=== PATIENT | female | born 1945 | race Caucasian/White ===

== ENCOUNTER 2017-04-20 09:16 | Outpatient (CLI) | payer MEDICARE ==
--- NOTE | 2017-04-20 11:17 | CT ---
CHEST AND ABDOMEN AND PELVIC CT WITH CONTRAST: HISTORY: Abnormal colonoscopy. Hypertension. Hepatic lesion and bone lesions. Liver disease. COMPARISON: None. TECHNIQUE: Chest, abdomen, and pelvic CT is performed with IV and oral contrast. Coronal reformatted images are submitted for interpretation. FINDINGS: CHEST CT: There is an incompletely evaluated soft tissue mass at the distal left clavicle, near the coracoid pr ocess. There is an enlarged left neck lymph node just inferior to the left thyroid lobe measuring 2. 1 x 2.9 cm. Enlarged left paraclavicular lymph node measuring 2.1 x 1.3 cm. Enlarged right axillary lymph node measuring 2.6 x 2.4 cm. Enlarged left axillary lymph node measuring 1.4 x 1.8 cm. The mediastinal mass, lymphadenopathy, or hematoma. A prosthetic heart valve is identified. There is a pleural-based mass with associated pathologic fracture involving the lateral right 3rd rib . The pleural-based component measures 4.2 x 1.3 cm. There is also a pathologic fracture involving the posterior right 7th rib with a pleural-based component of 1.2 x 5[address]: Extensive metastatic lesions in the liver and spleen. Pancreas and adrenal gland are unremarkable. Symmetric enhancement of the kidneys. No obstructive uropathy. There are enlarged peripancreatic ly mph nodes, periaortic and aortocaval lymph nodes. Periaortic lymph node measures 2.1 x 2.2 cm. Aort ic lymph node measures 1.4 x 1.8 cm. Gallbladder is unremarkable. Portal vein is patent. No mesenteric free air or free fluid. No evidence of bowel obstruction. Gastric mucosa and small bowel loops are unremarkable. Ileocecal junction is normal. Appendix is normal. There is scattered fecal material in a nondistended, nondil ated colon. There is evidence of minimal diverticulosis, without evidence of diverticulitis. PELVIC CT: Calcification and hypodensity in the left adnexa. Uterus is unremarkable. Urinary bladder is unrema rkable. Pathologic fracture with paraspinal malignancy at T7, T9, and T10. Additional focus of metastases in the right lesser trochanter and right inferior pubic ramus is suspected. Additional osseous abnorma lity in the distal left clavicle. IMPRESSION: Extensive osseous, lymph node malignancy along with malignancy involving the solid organs of the abdo men as described above. The exact etiology is uncertain. The liver lesions are amenable to percutan eous biopsy. Results of the study discussed with Dr. Tapia 04/20/17 at 10:34 a.m. CODE CR POS: TWAN
[2017-04-20] MEDS ORDERED: Iopamidol 370 76% 100 ML VIAL ONE (14:25)
== END 2017-04-20 09:17 | disposition home or self-care (01) ==
LOC: CT 09:16
PROVIDERS: ATTEND Family Medicine
DX: K76.9 Liver disease, unspecified (principal); M89.9 Disorder of bone, unspecified; C41.9 Malignant neoplasm of bone and articular cartilage, unspecified; R59.0 Localized enlarged lymph nodes
CPT/HCPCS: 71260; 74177; 82565

== ENCOUNTER → 2017-05-01 | Day surgery (SDC) | payer MEDICARE ==
[2017-04-30 12:10] VITALS: BMI 35.4
[~2017-05-01] MED LIST: FLU VACC TS2017-18 (>65YR) 0.5 ML SYRINGE IM ONE; Fentanyl 100 MCG/2 ML VIAL ONE; Midazolam HCl 2 mg/2 ml Vial ONE; Prevnar 13-Val Conj/PF 0.5 ML SYRINGE IM ONE; Sodium Bicarbonate 2.5 MEQ/5 ML VIAL ONE; Sodium Chloride 0.9% 20 ML ONE
[2017-05-01 10:05] LABS: INR-International Normal Ratio 1.1; PTT 32.4 SEC (22.9-36.1); Prothrombin Time 14.2 SEC (12.0-14.7)
[2017-05-01 10:14] LABS: Band 1 % (5-11); Eosinophils 1 % (0-10); Hemoglobin 10.8 g/dL (12.0-16.0); Lymphocytes 9 % (21-51); MDiff Complete? YES; Mean Corpuscular HGB CONC 32.4 g/dL (32.0-36.0); Mean Corpuscular Hemoglobin 30.4 pg (27.0-31.0); Mean Corpuscular Volume 93.7 fl (81.0-99.0); Mean Platelet Volume 7.3 fL (7.4-10.4); Monocytes 10 % (0-10); Neutrophil 78 % (42-75); Platelet Count 210 thou/uL (130-400); Polychromasia SLIGHT = 2-3 cells (100X) (0-2/hpf); RBC Distribution Width 18.2 % (11.5-14.5); Reactive Lymphocytes 1 % (0-10); Red Blood Cell (RBC) Count 3.56 mill/uL (4.20-5.40); White Blood Cell (WBC) Count 9.6 thou/uL (4.8-10.8)
--- NOTE | 2017-05-01 13:34 | CT ---
CT GUIDED RIGHT AXILLARY LYMPH NODE BIOPSY: COMPARISON: CT 04/20/17. TECHNIQUE/FINDINGS: The patient was brought to the CT suite. All questions were answered. Informed consent was obtained . Timeout was performed. The patient's right axilla was prepped and draped in normal sterile fashion. Four mL of Lidocaine wa s instilled into the superficial and deep soft tissues. Using CT guidance, a trocar was placed withi n the right axillary lymph node. Using an 18-gauge Biopince needle, a total of 4 cores were obtained . The pathology confirmed adequate location. The patient tolerated the procedure well without compl ication. IMPRESSION: Technically successful CT-guided right axillary lymph node biopsy. Pathology is pending. POS: TWAN
== END ==
LOC: CT 08:54
PROVIDERS: ATTEND Family Medicine
PROC: 07D53ZX Extraction of Right Axillary Lymphatic, Percutaneous Approach, Diagnostic (ICD-10-PCS; principal; 2017-05-01)
DX: C85.14 Unspecified B-cell lymphoma, lymph nodes of axilla and upper limb (principal); K76.9 Liver disease, unspecified; R53.81 Other malaise; I11.0 Hypertensive heart disease with heart failure; I50.32 Chronic diastolic (congestive) heart failure; D64.9 Anemia, unspecified; I48.91 Unspecified atrial fibrillation; E78.5 Hyperlipidemia, unspecified; K57.30 Diverticulosis of large intestine without perforation or abscess without bleeding; J30.9 Allergic rhinitis, unspecified; M17.11 Unilateral primary osteoarthritis, right knee; M89.9 Disorder of bone, unspecified; K31.7 Polyp of stomach and duodenum; B02.9 Zoster without complications; Z88.0 Allergy status to penicillin; Z79.01 Long term (current) use of anticoagulants; Z79.899 Other long term (current) drug therapy; Z95.2 Presence of prosthetic heart valve; Z98.890 Other specified postprocedural states; Z85.828 Personal history of other malignant neoplasm of skin
CPT/HCPCS: 71250; 71260; 77002; 85025; 85610; 85730; 88184; 88305; 88333; 88341; 88342; 88360; A4216; J2250; J3010

== ENCOUNTER 2017-05-09 19:45 | Inpatient (IN) | payer MEDICARE ==
[2017-05-09 20:31] LABS: Hemoglobin 13.8 g/dL (12.0-16.0); Mean Corpuscular HGB CONC 32.4 g/dL (32.0-36.0); Mean Corpuscular Hemoglobin 30.9 pg (27.0-31.0); Mean Corpuscular Volume 95.5 fl (81.0-99.0); Mean Platelet Volume 7.3 fL (7.4-10.4); Platelet Count 319 thou/uL (130-400); RBC Distribution Width 19.1 % (11.5-14.5); Red Blood Cell (RBC) Count 4.45 mill/uL (4.20-5.40); White Blood Cell (WBC) Count 16.5 thou/uL (4.8-10.8)
[2017-05-09 20:45] LABS: #Eosinphils 0.1 thou/uL (0.0-0.7); #Lymphocytes 1.7 thou/uL (1.20-3.40); #Neutrophils 13.7 thou/uL (1.40-6.50); %Basophils 0.1 % (0.0-1.0); %Eosinophils 0.7 % (0.0-10.0); %Lymphocytes 10.2 % (21.0-51.0); %Monocytes 6.1 % (0.0-10.0); %Neutrophils 82.9 % (42.0-75.0)
[2017-05-09 20:46] LABS: CKMB 2.2 ng/mL (0-6.6); Troponin I Less than 0.010 ng/mL (< 0.028)
[2017-05-09 20:48] LABS: ALT (SGPT) 151 U/L (8-55); AST (SGOT) 543 U/L (5-34); Albumin 2.3 g/dL (3.4-4.8); Alkaline Phosphatase 1079 U/L (40-150); Anion Gap 32 mmol/L (10-20); BUN (Urea Nitrogen) 43 mg/dL (9.8-20.1); Bilirubin, Total 5.8 mg/dL (0.2-1.2); Calc. Creatinine Clearance 0 mL/min (70-130); Carbon Dioxide 14 mmol/L (23-31); Chloride 83 mmol/L (98-107); Estimated GFR-MDRD 40; Globulin 3.2 g/dL (2.4-3.5); Glucose 64 mg/dL (83-110); Potassium 6.4 mmol/L (3.5-5.1); Protein, Total 5.5 g/dL (6.0-8.3); Sodium 123 mmol/L (136-145)
--- NOTE | 2017-05-09 21:09 | RAD ---
RADIOGRAPH CHEST 1 VIEW: 05/09/17 HISTORY: 71-year-old female with dyspnea. FINDINGS: The thoracic aorta is tortuous and ectatic. There is no evidence of air space density, pneumothorax, or pulmonary edema. The lateral costophrenic angles are sharp. IMPRESSION: 1) No acute pulmonary findings. 2) Ectasia of thoracic aorta. 3) Metastatic right rib/pleural mass. 4) Metastatic left clavicular lesion with pathologic fracture. aleena [] POS: TWAN
[2017-05-09] MEDS ORDERED: Albuterol Sulfate 2.5 mg/3 ml Neb ONE ×2 (21:15)
[2017-05-09] MEDS ORDERED: Calcium Gluc 4.6 MEQ/10 ML (100 MG/ML) ONE (21:17)
[2017-05-09] MEDS ORDERED: Norepinephrine 8 MG/0.9% NS 250 ML ONE (21:40)
[2017-05-09] MEDS ORDERED: fentaNYL Citrate/PF 2,000 MCG in Sodium Chloride 0.9% 60 ML IV SCH (21:56)
[2017-05-09 22:09] LABS: Actual Bicarbonate (HCO3a) 19.5 mEq/L (22-26); Base Excess (BEa) 7.6 mEq/L (0 (+/-) 2.5); Hematocrit-ABG 41.7 % (36.0-47.0); Hemoglobin (Hb) 10.8 g/dL (12.0-16.0); O2 Tension (PaO2) 95.3 mmHg (80.0-100.0); pH, Arterial 7.25 (7.35-7.45)
[2017-05-09 22:10] LABS: Analyzer IN Cardio ER; Calcium, Ionized 1.2 mmol/L (1.12-1.30); Puncture Site RRA
[2017-05-09 22:39] LABS: Fibrinogen 334 mg/dL (253-463)
[2017-05-09 22:40] LABS: PTT 55.7 SEC (22.9-36.1)
[2017-05-09 22:41] LABS: Prothrombin Time 91.1 SEC (12.0-14.7)
[2017-05-09 22:49] LABS: INR-International Normal Ratio 10.7; Platelet Count 282 thou/uL (130-400)
[2017-05-09 22:58] LABS: FSP-Qualitative ABNORMAL (Normal); FSP-Semiquantitative >=5 & <20 mcg/mL (Less than 5)
[2017-05-09 23:16] LABS: Bilirubin Moderate (Negative); Blood, Urine Moderate (Negative); Clarity TURBID (Clear); Glucose, Urine (Dipstick) Negative (Negative); Leukocyte Small (Negative); Nitrite Positive (Negative); Protein, Urine (Dipstick) Negative (Neg-Trace); Specific Gravity, Urine 1.022 (1.002-1.036)
[2017-05-09 23:21] LABS: Yeast-AUWi Flag 49.7 (0-25.0)
--- NOTE | 2017-05-09 23:23 | RAD ---
RADIOGRAPH CHEST 1 VIEW: Date: 05/09/17 Time: 10:08 p.m. HISTORY: 71-year-old female with dyspnea. Status post intubation. COMPARISON: 05/09/17, 8:13 p.m. FINDINGS: Endotracheal tube has been placed with distal tip overlying the mid thoracic trachea. There is a new central vascular catheter descending from the right neck with distal tip overlying the expected locat ion of the SVC. NG tube has been placed, with distal tip in the expected location of the proximal sto mach. There has been no other interval change. IMPRESSION: 1. Status post intubation, with endotracheal tube, nasogastric tube and right sided central vasc ular catheter. 2. Right lateral rib/pleural metastatic tumor mass. 3. Osseous metastatic lesion of left distal clavicle with pathologic fracture. 4. No acute pulmonary findings. KAMERON [] POS: TWAN
[2017-05-09 23:29] LABS: RBC/HPF 21-50 HPF (0-3)
[2017-05-09 23:30] LABS: Bacteria/HPF 2+ HPF (None Seen); Renal Epithelial 0-3 HPF (0-3); Transitional Epithelial 0-3 HPF (0-3)
[2017-05-10] MEDS ORDERED: Ventilator Sedation Protocol 1 EACH FS SCH (00:22)
[2017-05-10] MEDS ORDERED: CCU Electrolyte Replacement 1 EACH FS SCH (00:22)
[2017-05-10] MEDS ORDERED: Norepinephrine 8 MG/0.9% NS 250 ML IVPB SCH (00:22)
[2017-05-10] MEDS ORDERED: Sodium Chloride 0.9% 1,000 ML IV SCH ×2 (00:22)
[2017-05-10] MEDS ORDERED: DISCONTINUE PREVIOUS NARCOTIC PAIN MEDICATIONS AND BENZODIAZEPINES FS SCH (00:30)
[2017-05-10] MEDS ORDERED: Morphine 2 MG/ML SYRINGE SLOW IVP PRN (00:30)
[2017-05-10] MEDS ORDERED: fentaNYL Citrate/PF 2,000 MCG in Sodium Chloride 0.9% 60 ML IV SCH (00:30)
[2017-05-10] MEDS ORDERED: Propofol 1,000 MG/100 ML VIAL IV PRN (00:30)
[2017-05-10] MEDS ORDERED: Fentanyl BOLUS 250 ML IVPB PRN (00:30)
[2017-05-10] MEDS ORDERED: Lorazepam 2 MG/ML VIAL SLOW IVP PRN (00:30)
[2017-05-10] MEDS ORDERED: Potassium Phosphate 12 MMOL in Sodium Chloride 0.9% 250 ML 250 ML IV PRN (00:31)
[2017-05-10] MEDS ORDERED: CCU ELECTROLYTE REPLACEMENT PROTOCOL FS PRN (00:31)
[2017-05-10] MEDS ORDERED: Potassium Chloride 40 MEQ in Premix Bag 1 BAG IVPB PRN (00:31)
[2017-05-10] MEDS ORDERED: Potassium Phosphate 9 MMOL in Sodium Chloride 0.9% 100 ML IVPB PRN (00:31)
[2017-05-10] MEDS ORDERED: Potassium Chloride 20 MEQ TAB PO PRN (00:31)
[2017-05-10] MEDS ORDERED: Potassium Chloride 40 MEQ in Sodium Chloride 0.9% 250 ML 250 ML IVPB PRN (00:31)
[2017-05-10] MEDS ORDERED: Magnesium 2 GM/NS 0.9% 100 ML 2 GM in Premix Bag 1 BAG IVPB PRN (00:31)
[2017-05-10] MEDS ORDERED: Potassium Phosphate 15 MMOL in Sodium Chloride 0.9% 250 ML 250 ML IV PRN (00:31)
[2017-05-10] MEDS ORDERED: Magnesium Oxide 400 MG TAB PO PRN ×2 (00:31)
[2017-05-10 00:42] VITALS: BMI 40.0
[2017-05-10] MEDS ORDERED: Cefepime 2 GM, Syringe 2.5 ML in Sodium Chloride 0.9% 10 ML SLOW IVP SCH (01:00)
[2017-05-10] MEDS ORDERED: Morphine 4 MG/ML VIAL SLOW IVP PRN (01:15)
[2017-05-10] MEDS ORDERED: Vancomycin HCl 1.5 GM in Sodium Chloride 0.9% 250 ML 300 ML IVPB SCH (02:00)
--- NOTE | 2017-05-10 02:08 | HP ---
DATE OF ADMISSION: 05/09/2017 TIME OF SERVICE: 2250 PRIMARY CARE PHYSICIAN: Dr. Jose Tapia. PRIMARY ONCOLOGIST: Dr. Francesca Hi. PRIMARY BRAKE REPAIRER AIR: Unknown at the moment. CHIEF COMPLAINT: Shortness of breath. HISTORY OF PRESENT ILLNESS: Ms. Mcdermott is a 71-year-old female with a fairly complicated recent past medical history who presents to the emergency department complaining of shortness of breath and decr eased mental status for the last 2 days. The son who is at the bedside is the medical decision maker and next of kin, gives the following hist ory: The patient was with normal state of health about 2-3 weeks ago. She was able to do her normal activ ities, but was complaining of some left shoulder pain. X-ray revealed a clavicular fracture. In [facility] it is probably the first abnormality that was noted. She had a CAT scan done for workup of low hemoglobin that was found to be 6.6 and report at that time was negative. She had an upper and lower endoscopy at that time, two units of FFP and 2 units of packed red blood cells for coagulopathy associated with chronic Coumadin use. Since that time, she has had a continued decline in status and to the point where she is unable to ge t in and out of the vehicle by herself. Today, she was even more lethargic and was short of breath a nd hypoxic at home and therefore they brought her to the emergency department for evaluation. Per the ER doctor's shortly after arrival, labs were drawn and the patient's respiratory status and m ental status declined and she was urgently intubated with rocuronium and etomidate. We were called a bout 2 hours later for admission after things had resulted. Patient is unable to give me any further history. A son has been updated to current findings. He di d relate that after her second CT scan was done, there were some abnormalities so a CT scan with cont rast was obtained of the chest, abdomen, and pelvis, multiple areas including multiple vertebra, lung s, liver, spleen and multiple lymph nodes that "like a [place]ackler tree" and that was on 04/20/2017. O n 05/01/2017, she underwent biopsy that returned pathologically with a high grade large B cell lympho ma that was metastatic likely stage IV. We were called to admit the patient. On my arrival, she was intubated and sedated and paralyzed. Anastacio lino was on Levophed with good MAP. PAST MEDICAL HISTORY: 1. Congestive heart failure, though I do not see an echocardiogram report here. 2. History of chronic atrial fibrillation. 3. Allergic rhinitis. 4. Hyperlipidemia. 5. Hypertension. 6. Asthma. 7. Scoliosis. 8. DJD of the lumbar spine. 9. History of atrial flutter/SVT status post cardioversion and ablation in 2017. She does have aminta penaloza CHF, followed by Dr. Gagnon. 10. Osteoarthritis of the right knee. 11. Hemorrhoids. 12. Anemia as above, transfusion in 03/2017 of FFP and 2 units packed red blood cells. 13. History of sigmoid diverticulosis. She did see Dr. Lam in the past. 14. Ulcerative gastric polyp in the fundus and the body on EGD by Dr. Lam. 15. Pathologic fracture of the clavicle. 16. Large B cell lymphoma. 17. History of aortic stenosis, status post aortic valve replacement with a [employer] mechanical va lve. PAST SURGICAL HISTORY: Includes, 1. Aortic valve replacement with a [employer] metallic valve in 07/2001. 2. Septoplasty in 06/1977. 3. Uterine fibroid removal in 2008. 4. Right toe surgery remotely. 5. Cardioversion for atrial flutter in 2017. HOME MEDICATIONS: 1. Hydrocodone/acetaminophen 5/325 every 6 hours as needed for pain. 2. Aspirin 81 mg daily. 3. Diltiazem CD 120 mg daily. 4. Folic acid 1 mg daily. 5. Multaq 400 mg p.o. b.i.d. 6. Systane drops as needed. 7. Atenolol 25 mg p.o. daily. 8. Warfarin 5 mg Sunday, Sunday, and Sunday, 2.5 mg every other day. 9. Tylenol 650 mg as needed. 10. Lasix 40 mg daily. 11. Magnesium oxide 400 mg daily. ALLERGIES: PENICILLINS, reactions unknown. FAMILY HISTORY: Negative for clotting or bleeding disorder. No immune dysfunction, no blood tumors, no lymphoma. SOCIAL HISTORY: Negative for habits x3. She is . Son lives nearby and helps to make medical decisions. REVIEW OF SYSTEMS: Not obtainable due to paralyzed and sedated, intubated status. PHYSICAL EXAMINATION: VITAL SIGNS: Temperature 97.4, pulse 85, blood pressure 113/91, respiratory rate 18, satting 98% on FIO2 of 0.6. GENERAL: She is sedated, intubated orally. She is on the ventilator. HEENT: Head is normocephalic, atraumatic. Her pupils are 2-3 mm, minimally reactive. Mucous membra ruddy are dry. Oral endotracheal tube is in place. NECK: Supple. There is no lymphadenopathy, JVD or thyromegaly. I do not appreciate bruits. She blum s normal carotid upstrokes. LUNGS: Clear to auscultation bilaterally on the ventilator. I do not appreciate any prolonged expir atory phase or wheezes. She has no rales. CARDIOVASCULAR: She has normal cardiac and regular. Normal S1, S2. She has a mechanical valve hear d. She has a faint holosystolic murmur at the apex. ABDOMEN: Soft. There is normoactive bowel sounds present in all 4 quadrants. There is no involunta ry guarding. I do not palpate any masses overtly. EXTREMITIES: No cyanosis, no clubbing. She has got 2+ edema of the bilateral lower extremities. He r skin is cool and a delayed capillary refill. She is on Levophed at present likely taking it. NEUROLOGIC: Not testable. MUSCULOSKELETAL: Exam is normal to inspection. Large joints appear uninflamed. I cannot palpate ef fusions. LABORATORY DATA: Sodium 123, potassium 6.4, chloride 83, bicarbonate 14, BUN 43, creatinine 1.30 fro m baseline of less than 1 and calcium of 10.0. Glucose was 64. Her lactic acid was elevated at 14.5 . Liver function showed a total bilirubin of 5.8, total protein of 5.5 and albumin of 2.3. Her alkalin e phosphatase was 1071, AST of 543 and ALT of 151. CBC showed a white count of 116.5, hemoglobin 13.8, hematocrit of 42.5, platelet count 319,000. She has 83% granulocytes and 10% lymphocytes. RADIOGRAPHIC STUDIES: As above. ASSESSMENT AND PLAN: 1. Septic shock: The patient has elevated lactate, she is hypotensive requiring pressors despite fl uid resuscitation, she has an elevated white blood cell count with a slight granulocytosis and a poss ible bacterial infection. We will continue on Levophed, was admitted to the ICU, will give her 30 mL per kilo of IV fluids, and follow her lactic acid levels. 2. Acute hypoxic respiratory failure, status post intubation: Patient intubated on the ventilator. Pulmonary and Critical Care has been consulted. We will use sedation and ventilator protocols. We will check an ABG in the morning. 3. History of diastolic congestive heart failure: The patient is getting fluid resuscitated, we hav e to watch for fluid overload. 4. Essential hypertension. The patient is hypotensive at present. She required Levophed and obviou sly all of her medications will be held. 4. High grade large B cell lymphoma, metastatic, likely stage 4. The patient supposed to see Dr. Judd kim this week. Obviously, she is not in any kind of condition for any kind of treatment at this po int. 5. Demyelinating polyneuropathy. 6. History of atrial fibrillation/proximal atrial flutter. Multaq can be given once we have an OG t ube in place, she is on Cardizem-CD which we have to break up into short-acting doses. Fluid resusci tated. Currently, she is rate controlled. 7. Multiorgan failure, patient has acute kidney injury, she has elevated liver enzymes with a coagul opathy. Reportedly, her INR was around 6 tonight, though she has not had her Coumadin several days. She also was encephalopathic by report. We will aggressively hydrate, we will correct her metabolic abnormalities, and reassess. 8. Metastatic lymphoma. She has mets to the pelvis, lung, liver, spleen, abdominal lymph nodes.
[2017-05-10 04:10] LABS: ALT (SGPT) 281 U/L (8-55); AST (SGOT) 1606 U/L (5-34); Albumin 2.1 g/dL (3.4-4.8); Alkaline Phosphatase 935 U/L (40-150); Anion Gap 31 mmol/L (10-20); BUN (Urea Nitrogen) 45 mg/dL (9.8-20.1); Bilirubin, Total 5.7 mg/dL (0.2-1.2); Calc. Creatinine Clearance 58 mL/min (70-130); Carbon Dioxide 14 mmol/L (23-31); Chloride 88 mmol/L (98-107); Estimated GFR-MDRD 36; Globulin 2.7 g/dL (2.4-3.5); Protein, Total 4.8 g/dL (6.0-8.3); Sodium 126 mmol/L (136-145)
[2017-05-10 04:11] LABS: Glucose 59 mg/dL (83-110)
[2017-05-10 04:12] LABS: PTT 60.3 SEC (22.9-36.1); Prothrombin Time 95.2 SEC (12.0-14.7)
[2017-05-10] MEDS ORDERED: Norepinephrine 8 MG in Sodium Chloride 0.9% 250 ML 250 ML IVPB SCH (04:15)
[2017-05-10] MEDS ORDERED: Norepinephrine 8 MG in Sodium Chloride 0.9% 250 ML 242 ML IVPB SCH (04:15)
[2017-05-10] MEDS ORDERED: HumaLOG 300 UNITS/3 ML VIAL SC SCH (04:15)
[2017-05-10] MEDS ORDERED: Dextrose 50% Abboject 50 ML SYRINGE SLOW IVP SCH (04:15)
[2017-05-10] MEDS ORDERED: Calcium Gluc 4.6 MEQ/10 ML (100 MG/ML) IV SCH (04:30)
[2017-05-10 04:46] LABS: INR-International Normal Ratio 11.3
[2017-05-10 04:59] VITALS: TEMP 97.5
[2017-05-10] MEDS ORDERED: Sodium Bicarbonate 150 MEQ in Dextrose 5% in Water 1,000 ML IV SCH (05:00)
[2017-05-10 05:12] LABS: Band 9 % (5-11); Hemoglobin 12.2 g/dL (12.0-16.0); Hypochromia SLIGHT = 6-15 cells (100X) (0-5/hpf); Lymphocytes 10 % (21-51); MDiff Complete? YES; Mean Corpuscular HGB CONC 31.6 g/dL (32.0-36.0); Mean Corpuscular Hemoglobin 30.2 pg (27.0-31.0); Mean Corpuscular Volume 95.6 fl (81.0-99.0); Mean Platelet Volume 6.8 fL (7.4-10.4); Metamyelocyte 3 % (0-0); Monocytes 6 % (0-10); Neutrophil 71 % (42-75); Nucleated RBC 1 % (0); PLT Morphology Comment Appears Adequate; Platelet Count 320 thou/uL (130-400); RBC Distribution Width 19.4 % (11.5-14.5); Reactive Lymphocytes 1 % (0-10); Red Blood Cell (RBC) Count 4.02 mill/uL (4.20-5.40); White Blood Cell (WBC) Count 19.8 thou/uL (4.8-10.8)
--- NOTE | 2017-05-10 05:24 | PDOC.PN ---
- Subjective Encounter Start Date: 05/10/17 Encounter Start Time: 04:00 PT admitted by me last night, mutliorgan failure, elevated Cr, liver enzymes, lactic acid, potassium. Intubated in ER. met acidosis, Vent rate increased to 20 this morning in repsonse. repeat labs received, K+ still elevated at 7.0. Given CaGluc, Insulin and D50, and NS changed to NaHCO3 150 drip at 125 per hour. HR dropped from 70s to 50s to high 40s, T waves on monitor look peaked, K+ then confirmed to be 7.0. Pt given Etomidate and Russell in ER. no sedation since arival. not responsive, no purposeful movements. Son contacted regarding declining condition, but not intially reached, he did come in, and i subsequesntly met him there. No F, no D/C, no other acute events 10 point ROS not obtainable due to unresponsiveness - Objective Resuscitation Status: Resuscitation Status DNR:Do Not Resuscitate MAR Reviewed: Yes Vital Signs & Weight: Vital Signs (12 hours) Temp Pulse Resp Pulse Ox 05/10/17 04:00 97.5 F L 20 05/10/17 02:00 16 05/10/17 01:15 97.0 F L 67 16 100 05/10/17 01:00 97.0 F L Most Recent Monitor Data Heart Rate from ECG 57 NIBP 95/27 NIBP BP-Mean 50 Respiration from ECG 20 SpO2 100 I&O: 05/08/17 05/09/17 05/10/17 06:59 06:59 06:59 Output Total 70 Balance -70 Result Diagrams: 05/10/17 03:32 05/10/17 03:32 Additional Labs: Accuchecks 05/10/17 00:54 POC Glucose 102 EKG Reviewed by me: Yes Phys Exam - Physical Examination unresponsive, off sedation pupils 1-2mm and minimally reactive, oral ETT, +icterus Neck: no JVD, supple, full ROM shotty anterior cervical LAD bilaterally Respiratory: no wheezing, no rales, no rhonchi, clear to auscultation bilateral mechanically ventiolated, RR 20 Cardiovascular: no rub talia, regular. mech AoV heard Gastrointestinal: soft, positive bowel sounds distended Musculoskeletal: pulses present, edema present Deviation from normal: unresponsive off of sedation Skin: no rash, normal turgor, cap refill <2 seconds Deviation from normal: petechiae to abd. legs mottled. jaundiced Dx/Plan (1) Septic shock Code(s): A41.9 - SEPSIS, UNSPECIFIED ORGANISM; R65.21 - SEVERE SEPSIS WITH SEPTIC SHOCK Status: Acute Comment: pt maxed out on levophed. correcting eletrolytes, placed on bicarb drip. will follow up on Pulm recommendations (2) Metabolic acidosis Code(s): E87.2 - ACIDOSIS Status: Acute Comment: elevated lactate, increased AG. some resp compensation (3) Acute hypoxemic respiratory failure Code(s): J96.01 - ACUTE RESPIRATORY FAILURE WITH HYPOXIA Status: Acute (4) Metabolic encephalopathy Code(s): G93.41 - METABOLIC ENCEPHALOPATHY Status: Acute (5) Transaminitis Code(s): R74.0 - NONSPEC ELEV OF LEVELS OF TRANSAMNS & LACTIC ACID DEHYDRGNSE Status: Acute Comment: like due ot lymphome and wideapread infiltration. workse today. INR 11 off of coumading. no sign of active bleed (6) Large cell lymphoma of intra-abdominal lymph nodes Code(s): C85.83 - OT TYPES OF NON-HODGKIN LYMPHOMA, INTRA-ABD LYMPH NODES Status: Acute (7) Lactic acidosis Code(s): E87.2 - ACIDOSIS Status: Acute - Plan cont current plan of care, plan discussed w/ family, continue antibiotics, respiratory therapy * . repeat ABG pending, repeat BMP ordered
[2017-05-10 05:53] LABS: Lactic Acid 17.2 mmol/L (0.5-2.2)
[2017-05-10 06:21] LABS: Actual Bicarbonate (HCO3a) 9.9 mEq/L (22-26); Base Excess (BEa) -17.1 mEq/L (0 (+/-) 2.5); CO2 Tension 27.3 mmHg (35.0-45.0); O2 Tension (PaO2) 123.8 mmHg (80.0-100.0); pH, Arterial 7.18 (7.35-7.45)
[2017-05-10 06:22] LABS: ALV-art Gradient 198.575 (0-20); Puncture Site RRA
[2017-05-10 06:27] VITALS: BP 87/19
--- NOTE | 2017-05-10 07:54 | DS ---
PRIMARY CARE PHYSICIAN: Dr. Tapia DATE OF ADMISSION: 05/09/2017 DATE OF : 05/10/2017 TIME OF : 639 CAUSE OF : 1. Asystolic cardiac arrest. 2. Acute hypoxemia and hypercarbic respiratory failure. 3. Severe septic shock with multiorgan failure. CONSULTATIONS: None. PROCEDURES: None. HOSPITAL COURSE: Ms. Mcdermott is a 71-year-old female who was admitted from the ER after presenting wi th shortness of breath. She had been recently diagnosed with a high grade large B cell lymphoma invo lving metastasis to the liver, spleen, bones and periaortic lymph nodes. In the ER, she became obtunded and was intubated and admitted to the ICU. HOSPITAL COURSE: The patient seen by me and admitted to the ICU. She was continued on ventilation a nd IV fluids. Lactic acid on admission was 14.5. Follow up labs 2-3 hours later showed lactic acid down. Her vitals remained stable. Shortly after midnight around 12:30-1:00 a.m., the patient had a sudden drop in blood pressure and he art rate down into the 50s, heart rate in the 90s systolic for blood pressure. Repeat labs showed he r lactic acid increased back up to 17, she was maxed on Levophed with minimal effect. Labs showed he r potassium up to 7.0. She was given calcium gluconate and insulin and glucose. She subsequently wa s transitioned to a sodium bicarbonate drip for persistent metabolic acidosis. Her ABG came back wit h a pH of 7.1, she had a pCO2 that was fairly normal, but her respiratory rate was increased by me to create a respiratory alkalosis to compensate for the metabolic acidosis. By 6 o'clock this morning, her pH continued to worsen, her lactic acid continued to rise and she was maxed on Levophed. I discussed with the son escalating care, continuing the same or withdrawing care and he opted to withdraw care and focus on comfort. At time the patient was terminally extubated, a nd she quickly became asystolic and . The patient at 0640. The body was released to the home of the son's choice.
[2017-05-10] MEDS ORDERED: Dextrose 50% Abboject 50 ML SYRINGE ONE (08:19)
[2017-05-10] MEDS ORDERED: EPINEPHrine 1 MG/10 ML Abboject SYRINGE ONE (08:19)
[2017-05-10] MEDS ORDERED: Sodium Bicarb 50 MEQ/50 ML Abboject 8.4% SYRINGE ONE (08:19)
--- NOTE | 2017-05-10 09:45 | RAD ---
PORTABLE CHEST: HISTORY: Sepsis. COMPARISON: Prior day's study. FINDINGS: The patient is rotated. Endotracheal and NG tubes, as well as right-sided central line, are unchange d in position. Heart size is within normal limits with postop sternotomy change and valve replacemen t. Subsegmental atelectatic changes in the lung bases. No infiltrative process. IMPRESSION: 1. Subsegmental atelectasis in the lung bases. 2. Endotracheal and nasogastric tubes remain in satisfactory position. POS: TWAN
[2017-05-11] MEDS ORDERED: Vancomycin HCl 1.5 GM in Sodium Chloride 0.9% 250 ML 300 ML IVPB SCH (02:00)
--- NOTE | 2017-05-28 15:49 | EKG ---
Test Reason : Blood Pressure : / mmHG Vent. Rate : 080 BPM Atrial Rate : 080 BPM P-R Int : 232 ms QRS Dur : 168 ms QT Int : 432 ms P-R-T Axes : 080 -37 111 degrees QTc Int : 498 ms Sinus rhythm with 1st degree A-V block Left axis deviation Left bundle branch block Abnormal ECG Confirmed by LEOPOLDO Mast, WINDY ([id number]), general expeditor RYLAND OZUNA ([id number]) on 05/28/2017 3:48:51 PM Referred By: Confirmed By:WINDY MINA M.D.
--- NOTE | 2017-05-28 15:50 | EKG ---
Test Reason : Blood Pressure : / mmHG Vent. Rate : 049 BPM Atrial Rate : 049 BPM P-R Int : 230 ms QRS Dur : 176 ms QT Int : 498 ms P-R-T Axes : 064 -38 100 degrees QTc Int : 449 ms Marked sinus bradycardia with 1st degree A-V block with Premature atrial complexes Left axis deviation Left bundle branch block Abnormal ECG Confirmed by LEOPOLDO Mast, WINDY ([id number]), food expeditor RYLAND OZUNA ([id number]) on 05/28/2017 3:49:45 PM Referred By: Confirmed By:WINDY MINA M.D.
== END 2017-05-10 08:32 | disposition expired | DRG 871 ==
LOC: ERS 19:45 → CCU 05-10 00:03
PROVIDERS: ADMIT Internal Medicine Infectious Disease; ATTEND Internal Medicine Infectious Disease
PROC: 0BH17EZ Insertion of Endotracheal Airway into Trachea, Via Natural or Artificial Opening (ICD-10-PCS; principal; 2017-05-10)
PROC: 5A1935Z Respiratory Ventilation, Less than 24 Consecutive Hours (ICD-10-PCS; 2017-05-10)
PROC: 02HV33Z Insertion of Infusion Device into Superior Vena Cava, Percutaneous Approach (ICD-10-PCS; 2017-05-10)
DX: A41.9 Sepsis, unspecified organism (principal); R65.21 Severe sepsis with septic shock; G93.40 Encephalopathy, unspecified; E87.3 Alkalosis; J96.01 Acute respiratory failure with hypoxia; J96.02 Acute respiratory failure with hypercapnia; N17.9 Acute kidney failure, unspecified; E87.2 Acidosis; C83.30 Diffuse large B-cell lymphoma, unspecified site; C78.00 Secondary malignant neoplasm of unspecified lung; C78.7 Secondary malignant neoplasm of liver and intrahepatic bile duct; C78.89 Secondary malignant neoplasm of other digestive organs; G61.81 Chronic inflammatory demyelinating polyneuritis; I50.32 Chronic diastolic (congestive) heart failure; I11.0 Hypertensive heart disease with heart failure; I48.2 Chronic atrial fibrillation; M41.9 Scoliosis, unspecified; Z79.01 Long term (current) use of anticoagulants; E78.5 Hyperlipidemia, unspecified; J45.909 Unspecified asthma, uncomplicated; M47.9 Spondylosis, unspecified; M17.11 Unilateral primary osteoarthritis, right knee; D64.9 Anemia, unspecified; K57.30 Diverticulosis of large intestine without perforation or abscess without bleeding; Z95.2 Presence of prosthetic heart valve; Z79.82 Long term (current) use of aspirin; Z88.0 Allergy status to penicillin; I48.91 Unspecified atrial fibrillation; I46.9 Cardiac arrest, cause unspecified; T68.XXXA Hypothermia, initial encounter; I44.30 Unspecified atrioventricular block; I44.7 Left bundle-branch block, unspecified
CPT/HCPCS: 31500; 36415; 36416; 36556; 36680; 51702; 71045; 80053; 81003; 81015; 82553; 82805; 83605; 83880; 84484; 85025; 85049; 85300; 85362; 85379; 85384; 85610; 85730; 87040; 87149; 93005; 94002; 94003; 94760; 96365; 96366; 96368; 96375; J0171; J0692; J2270; J3010; J3370; J7050; J7070; J7611